=== PATIENT | female | born 1960 | race Caucasian/White ===

== ENCOUNTER 2017-11-04 15:24 | Outpatient (CLI) | payer BC | END 2017-11-04 15:25 | disposition home or self-care (01) | LOC: BICMAMMO 15:24 | PROVIDERS: ATTEND Obstetrics & Gynecology | DX: Z12.31 Encounter for screening mammogram for malignant neoplasm of breast (principal); Z80.3 Family history of malignant neoplasm of breast | CPT/HCPCS: 77063; 77067 ==

== ENCOUNTER 2017-12-31 07:25 | Outpatient (CLI) | payer BC | END 2017-12-31 07:26 | disposition home or self-care (01) | LOC: BICULT 07:25 | PROVIDERS: ATTEND Internal Medicine Gastroenterology | DX: K75.81 Nonalcoholic steatohepatitis (NASH) (principal); K74.60 Unspecified cirrhosis of liver; K76.0 Fatty (change of) liver, not elsewhere classified | CPT/HCPCS: 76705 ==

== ENCOUNTER 2018-07-02 07:47 | Outpatient (CLI) | payer BC ==
--- NOTE | 2018-07-02 09:23 | ULT ---
ULTRASOUND HEPATIC DOPPLER DUPLEX: Date: 07/02/18 HISTORY: Nonalcoholic steatohepatitis (HINOJOSA). TECHNIQUE: Montalvo scale evaluation of right upper quadrant structures and spleen. Color flow and spectral analysis of major vessels associated with the liver. FINDINGS: Hepatic echogenicity is diffusely increased, with signal dropout in the deep landrum, consistent with fatty liver. Gallbladder wall thickness is normal. No gallstones, sludge, pericholecystic fluid, or sonographic Mu rphy's sign. Common duct caliber is 7 mm. Appropriate waveforms and hepatofugal flow in the left, right, and middle hepatic veins. Appropriate arterial Doppler waveform in hepatic artery. Normal portal venous waveform and hepatopetal blood flow demonstrated in the splenic vein, main angela l vein, left portal vein, and right portal vein. No hydronephrosis of the right kidney. No splenomegaly. IMPRESSION: 1. Hepatic steatosis. 2. No evidence of portal venous hypertension. 3. No interval change since 12/31/17. POS: BEL
== END 2018-07-02 07:48 | disposition home or self-care (01) ==
LOC: BICULT 07:47
PROVIDERS: ATTEND Internal Medicine Gastroenterology
DX: K75.81 Nonalcoholic steatohepatitis (NASH) (principal); K76.0 Fatty (change of) liver, not elsewhere classified
CPT/HCPCS: 36415; 76705; 80053; 82105; 85025

== ENCOUNTER 2018-11-20 15:28 | Outpatient (CLI) | payer BC ==
--- NOTE | 2018-11-20 16:33 | MMO ---
Bilateral MAMMO Bilat Screen [facility]. CLINICAL HISTORY: Patient is 58 years old and is seen for screening. The patient has the following family history of breast cancer: maternal grandmother, at age 82 and paternal aunt, at age 40. The patient has no personal history of cancer. VIEWS: The views performed were: bilateral craniocaudal with tomosynthesis and bilateral mediolateral oblique with tomosynthesis. FILMS COMPARED: The present examination has been compared to prior imaging studies performed at [facility] on 09/20/2015, 09/20/2016 and 11/04/2017. MAMMOGRAM FINDINGS: Finding 1: There are stable benign appearing calcifications seen in both breasts. Finding 2: There are stable benign appearing densities seen in both breasts. There are no suspicious masses, suspicious calcifications, or new areas of architectural distortion. IMPRESSION: THERE IS NO MAMMOGRAPHIC EVIDENCE OF MALIGNANCY. A ROUTINE FOLLOW-UP MAMMOGRAM IN 1 YEAR IS RECOMMENDED. THE RESULTS OF THIS EXAM WERE SENT TO THE PATIENT. ACR BI-RADS Category 2 - Benign finding MAMMOGRAPHY NOTE: 1. A negative mammogram report should not delay a biopsy if a dominant of clinically suspicious mass is present. 2. Approximately 10% to 15% of breast cancers are not detected by mammography. 3. Adenosis and dense breasts may obscure an underlying neoplasm.
== END 2018-11-20 15:29 | disposition home or self-care (01) ==
LOC: BICMAMMO 15:28
PROVIDERS: ATTEND Obstetrics & Gynecology
DX: Z12.31 Encounter for screening mammogram for malignant neoplasm of breast (principal); Z80.3 Family history of malignant neoplasm of breast
CPT/HCPCS: 77063; 77067

== ENCOUNTER 2019-01-27 07:41 | Outpatient (CLI) | payer BC ==
--- NOTE | 2019-01-27 08:24 | ULT ---
US Hepatic Doppler History: Nonalcoholic hepatosteatosis Comparison: Liver Doppler ultrasound June 2018 Findings: Real-time grayscale, color, and spectral analysis of the liver was performed. Visualized portion of the aorta, IVC, and pancreas are unremarkable. Pancreas is unremarkable. Diffuse increased hepatic echotexture. Portal vein is patent with antegrade flow. Common bile duct me asures 4 mm, normal. Hepatic veins are patent. No hepatic mass. Liver measures 15.4 cm in length. Spleen measures 12.4 cm in length. Impression: 1. Diffuse increased hepatic echotexture suggesting steatosis without mass. 2. Splenomegaly. 3. Normal vascular flow.
== END 2019-01-27 07:42 | disposition home or self-care (01) ==
LOC: BICULT 07:41
PROVIDERS: ATTEND Internal Medicine Gastroenterology
DX: K75.81 Nonalcoholic steatohepatitis (NASH) (principal); R16.1 Splenomegaly, not elsewhere classified
CPT/HCPCS: 36415; 76705; 80053; 82105; 85025

== ENCOUNTER 2019-08-13 07:09 | Outpatient (CLI) | payer BC ==
--- NOTE | 2019-08-13 08:14 | ULT ---
US Hepatic Doppler HISTORY: Fatty liver COMPARISON: 01/27/2019 FINDINGS: Changes of fatty infiltration of the liver are again seen without focal mass or intrahepatic biliary ductal dilatation. The spleen is normal measuring 11.2 cm in length. No gallstones, gallbladder wall thickening or pericholecystic fluid is seen. The common duct measures 6 mm in diameter. The visu alized portions of the pancreas There is normal flow and spectral waveforms in the hepatic, portal and splenic vasculature. No free f luid is seen. IMPRESSION: Fatty liver. No evidence of mass.
== END 2019-08-13 07:10 | disposition home or self-care (01) ==
LOC: BICULT 07:09
PROVIDERS: ATTEND Physician Assistant Medical
DX: K75.81 Nonalcoholic steatohepatitis (NASH) (principal); K76.0 Fatty (change of) liver, not elsewhere classified
CPT/HCPCS: 76705

== ENCOUNTER 2019-11-26 15:14 | Outpatient (CLI) | payer BC ==
--- NOTE | 2019-11-29 08:42 | MMO ---
Bilateral MAMMO Bilat Screen [facility]. CLINICAL HISTORY: Patient is 59 years old and is seen for screening. The patient has the following family history of breast cancer: maternal grandmother, at age 82 and paternal aunt, at age 40. The patient has no personal history of cancer. VIEWS: The views performed were: bilateral craniocaudal with tomosynthesis and bilateral mediolateral oblique with tomosynthesis. FILMS COMPARED: The present examination has been compared to prior imaging studies performed at [facility] on 09/20/2015, 09/20/2016, 11/04/2017 and 11/20/2018. This study has been interpreted with the assistance of computer-aided detection. MAMMOGRAM FINDINGS: There are scattered fibroglandular densities. There are stable benign appearing calcifications seen in both breasts. There are no suspicious masses, suspicious calcifications, or new areas of architectural distortion. IMPRESSION: THERE IS NO MAMMOGRAPHIC EVIDENCE OF MALIGNANCY. A ROUTINE FOLLOW-UP MAMMOGRAM IN 1 YEAR IS RECOMMENDED. THE RESULTS OF THIS EXAM WERE SENT TO THE PATIENT. ACR BI-RADS Category 2 - Benign finding MAMMOGRAPHY NOTE: 1. A negative mammogram report should not delay a biopsy if a dominant of clinically suspicious mass is present. 2. Approximately 10% to 15% of breast cancers are not detected by mammography. 3. Adenosis and dense breasts may obscure an underlying neoplasm. Reported by: MICHAEL YORK MD Electonically Signed: [id number]
== END 2019-11-26 15:15 | disposition home or self-care (01) ==
LOC: BICMAMMO 15:14
PROVIDERS: ATTEND Obstetrics & Gynecology
DX: Z12.31 Encounter for screening mammogram for malignant neoplasm of breast (principal); Z80.3 Family history of malignant neoplasm of breast
CPT/HCPCS: 77063; 77067

== ENCOUNTER 2020-03-28 08:01 | Outpatient (CLI) | payer BC ==
--- NOTE | 2020-03-28 09:21 | CT ---
CT abdomen and pelvis noncontrast HISTORY: Microhematuria. FINDINGS: Each renal collecting system, ureter, and urinary bladder are decompressed. At the inferior pole of the right kidney is an irregular shaped 0.8 cm calcification within nondilated calyces. A 0.1 cm calculus is present within a nondilated calyx at the inferior pole left kidney. Tiny phlebolit hs noted within the lower retroperitoneum near the each distal ureter. Small rounded dystrophic calcification lies immediately anterior to the bladder base. Tiny focus of nonspecific parenchymal opacity at the right anterior lung base. 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 Lack of contrast limits evaluation of the soft tissues. Nonspecific peripancreatic lymph nodes measur e up to 2.0 cm greatest length and retained normal fatty amada. No evidence of bowel obstruction or inflammation. IMPRESSION : Nonobstructing 0.8 cm right renal calculus. Tiny left renal calculus. Atherosclerosis.
== END 2020-03-28 08:02 | disposition home or self-care (01) ==
LOC: BICCT 08:01
PROVIDERS: ATTEND Family Medicine
DX: R31.29 Other microscopic hematuria (principal); N20.0 Calculus of kidney; I70.90 Unspecified atherosclerosis
CPT/HCPCS: 74176

== ENCOUNTER 2020-04-04 06:54 | Outpatient (CLI) | payer BC ==
--- NOTE | 2020-04-04 07:52 | ULT ---
Hepatic sonogram with duplex evaluation HISTORY: Abnormal liver function tests. FINDINGS: Gallbladder has a normal appearance. Common duct is 0.4 cm. Liver is diffusely echogenic without focal mass or intrahepatic biliary dilatation. It measures up to 14.5 cm. No free fluid. Spleen is 11.8 cm length. Good color and spectral Doppler flow within the hepatic and splenic arteries. Portal venous flow is t owards the liver. Hepatic venous flow is towards the IVC. IMPRESSION : Hepato-steatosis. No findings of portal venous hypertension.
== END 2020-04-04 06:55 | disposition home or self-care (01) ==
LOC: BICULT 06:54
PROVIDERS: ATTEND Physician Assistant Medical
DX: K75.81 Nonalcoholic steatohepatitis (NASH) (principal)
CPT/HCPCS: 36415; 76705; 80053; 82105; 85025; 85610

== ENCOUNTER 2020-04-27 06:11 | Day surgery (SDC) | payer BC ==
[2020-04-25 12:11] VITALS: BMI 36.8
[2020-04-27] MEDS ORDERED: Levofloxacin 500 mg/D5W 100 ml Premix Bag ONE (07:19)
[2020-04-27] MEDS ORDERED: Fentanyl 100 MCG/2 ML VIAL ONE ×2 (07:25→09:51)
[2020-04-27] MEDS ORDERED: Midazolam HCl 2 mg/2 ml Vial ONE (07:42)
[2020-04-27] MEDS ORDERED: Iothalamate Meglumine 60% 50 ML VIAL FS ONE (08:29)
[2020-04-27] MEDS ORDERED: B & O ONE (08:29)
[2020-04-27] MEDS ORDERED: Phenazopyridine HCl 100 MG TAB ONE (09:54)
[2020-04-27] MEDS ORDERED: PROPOFOL 200 MG/20 ML VIAL ONE (10:14)
[2020-04-27] MEDS ORDERED: Rocuronium Bromide 10 MG/ML (10ML VIAL) ONE (10:14)
[2020-04-27] MEDS ORDERED: Lidocaine 1% PF 5 ML VIAL ONE (10:14)
[2020-04-27] MEDS ORDERED: EPHEDRINE 25 MG/5 ML SYRINGE ONE (10:14)
[2020-04-27] MEDS ORDERED: PHENYLEPHRINE-NS 100 MCG/ML 10 ML SYRINGE ONE (10:14)
[2020-04-27] MEDS ORDERED: Ondansetron PF 4 MG/2 ML Vial ONE (10:14)
[2020-04-27] MEDS ORDERED: Glycopyrrolate 0.2 MG/ML 5 ML SYRINGE ONE (10:14)
--- NOTE | 2020-04-27 11:05 | OP ---
DATE OF PROCEDURE: 04/27/2020 SERVICE: Urology. PREOPERATIVE DIAGNOSIS: Right renal stone. POSTOPERATIVE DIAGNOSIS: Right renal stone. PROCEDURES PERFORMED: Right ureteroscopy, laser lithotripsy, basket extraction of stone, and placement of a 6 x 24 double-J stent. INDICATION FOR PROCEDURE: Ms. Shepard is a 59-year-old white female who presented to [place] with hematuria. She had a right renal stone noted on CT scan measuring 8 mm. She was asymptomatic, but due to the size of the stone, I had recommended prophylactic treatment. She elected to proceed forward after discussion of risks and benefits. DESCRIPTION OF PROCEDURE: After identification of armband and verification of consent, the patient was brought back to the operating room where she underwent general anesthesia with endotracheal intubation. She was then placed in dorsal lithotomy position and prepped and draped in usual sterile fashion. After appropriate time-out, a lubricated 22-Kenyan rigid cystoscope was introduced per urethra into the bladder. Cystoscopy did not demonstrate any mucosal abnormalities. The bladder otherwise appeared normal. Both ureters were in the orthotopic location. Attention was turned to the right ureteral orifice, which was cannulated with a 0.035 Sensor wire up to the level of renal pelvis. The stone was radiolucent on fluoroscopy. The cystoscope was removed and a dual-lumen catheter was advanced up to the mid ureter, where a Super Stiff wire was passed to the second lumen up to the level of renal pelvis. The dual-lumen was then removed, and a Sensor wire affixed to the drapes as a safety wire. A Bard short ureteral access sheath 12/14-Kenyan diameter was advanced over the Super Stiff wire up to the level of the proximal ureter. The inner cannula and Super Stiff wire were then removed leaving the outer sheath and Sensor wire in place. A flexible digital ureteroscope was passed through the ureteral access sheath into the renal pelvis where the stone was found in the mid pole. Using a 200 micron ball-tip laser fiber, the stone was dusted into extremely small fragments. Both these fragments were too small to hop picker with the 1.9-Kenyan Jeremiah basket, which were used for stone extraction. The largest piece, which measured about 2 to 3 mm was grasped with this basket and removed for stone specimen. The remainder were too little to grab and we elected to let these pass on their own. Final pyeloscopy did not demonstrate any additional stones and pull-back ureteroscopy did not demonstrate any other abnormalities or stones. A 6 x 24 double-J stent was advanced after all instruments were removed over the Sensor wire and fluoroscopically positioned into place within the renal pelvis. The wire was removed leaving a partial curl in the kidney and a good curl in the bladder. Cystoscope was then reintroduced into the bladder to confirm the distal curl placement and then empty the bladder out. The scope was then removed. B and O suppositories were placed in the rectum. The patient was taken out of positioning, awakened, taken to PACU for recovery in stable condition. COMPLICATIONS: None. ESTIMATED BLOOD LOSS: Minimal. RETAINED TUBES AND DRAINS: 6 x 24 double-J stent on the right. SPECIMENS: Stone for stone analysis. DISPOSITION: The patient will be discharged home and follow up with me in approximately 1 week for cystoscopy and stent removal. Job ID: [id number]
[2020-04-27] MEDS ORDERED: HYDROcodone/Acetaminophen 5/325 mg Tablet ONE (11:10)
== END 2020-04-27 12:00 | disposition home or self-care (01) ==
LOC: SDC 06:11
PROVIDERS: ATTEND Urology
PROC: 0TC38ZZ Extirpation of Matter from Right Kidney Pelvis, Via Natural or Artificial Opening Endoscopic (ICD-10-PCS; principal; 2020-04-27)
PROC: 0T768DZ Dilation of Right Ureter with Intraluminal Device, Via Natural or Artificial Opening Endoscopic (ICD-10-PCS; principal; 2020-04-27)
DX: N20.0 Calculus of kidney (principal); R39.11 Hesitancy of micturition; I10 Essential (primary) hypertension; F32.9 Major depressive disorder, single episode, unspecified; E78.00 Pure hypercholesterolemia, unspecified; E11.41 Type 2 diabetes mellitus with diabetic mononeuropathy; K58.9 Irritable bowel syndrome, unspecified; K74.60 Unspecified cirrhosis of liver; K75.81 Nonalcoholic steatohepatitis (NASH); M85.80 Other specified disorders of bone density and structure, unspecified site; J45.909 Unspecified asthma, uncomplicated; Z87.891 Personal history of nicotine dependence; Z79.4 Long term (current) use of insulin; Z79.82 Long term (current) use of aspirin; Z79.899 Other long term (current) drug therapy
CPT/HCPCS: 76000; 82365; 88300; J1956; J2250; J2405; J2704; J3010

== ENCOUNTER 2020-06-19 12:16 | Outpatient (CLI) | payer BC ==
--- NOTE | 2020-06-19 14:29 | ULT ---
BILATERAL RENAL ULTRASOUND: Date: 06/19/2020 HISTORY: Kidney stones. FINDINGS: Real-time imaging of the right and left kidneys were performed. Right kidney measures 11.9 cm in [place] th and the left kidney measures 11.0 cm in length. No cyst, mass, or obstruction. No calculi demonstr ated. The bladder region appears unremarkable. Bilateral ureteral jets. IMPRESSION: Unremarkable renal ultrasound. POS: AH
== END 2020-06-19 12:17 | disposition home or self-care (01) ==
LOC: BICULT 12:16
PROVIDERS: ATTEND Urology
DX: N20.0 Calculus of kidney (principal); K75.81 Nonalcoholic steatohepatitis (NASH)
CPT/HCPCS: 76770

== ENCOUNTER 2020-11-27 15:04 | Outpatient (CLI) | payer BC | END 2020-11-27 15:05 | disposition home or self-care (01) | LOC: BICMAMMO 15:04 | PROVIDERS: ATTEND Obstetrics & Gynecology | DX: Z12.31 Encounter for screening mammogram for malignant neoplasm of breast (principal); Z80.3 Family history of malignant neoplasm of breast | CPT/HCPCS: 77063; 77067 ==

== ENCOUNTER 2021-08-27 07:00 | Outpatient (CLI) | payer BC | END 2021-08-27 07:01 | disposition home or self-care (01) | LOC: BICULT 07:00 | PROVIDERS: ATTEND Physician Assistant Medical | DX: K75.81 Nonalcoholic steatohepatitis (NASH) (principal); R16.0 Hepatomegaly, not elsewhere classified | CPT/HCPCS: 76700 ==

== ENCOUNTER 2021-12-03 13:02 | Outpatient (CLI) | payer BC | END 2021-12-03 13:03 | disposition home or self-care (01) | LOC: BICMAMMO 13:02 | PROVIDERS: ATTEND Obstetrics & Gynecology | DX: Z12.31 Encounter for screening mammogram for malignant neoplasm of breast (principal); Z80.3 Family history of malignant neoplasm of breast | CPT/HCPCS: 77063; 77067 ==

== ENCOUNTER 2022-02-05 12:28 | Outpatient (CLI) | payer BC ==
[~2022-02-05 12:28] MED LIST: Magnevist 469MG/ML 20 ML VIAL ONE
== END 2022-02-05 12:29 | disposition home or self-care (01) ==
LOC: BICMRI 12:28
PROVIDERS: ATTEND Physician Assistant Medical
DX: K74.60 Unspecified cirrhosis of liver (principal); K75.81 Nonalcoholic steatohepatitis (NASH)
CPT/HCPCS: 74183; 82565; A9579

== ENCOUNTER 2022-07-04 15:13 | Outpatient (CLI) | payer BC | END 2022-07-04 15:14 | disposition home or self-care (01) | LOC: RAD 15:13 | PROVIDERS: ATTEND Internal Medicine | DX: R07.81 Pleurodynia (principal) ==

== ENCOUNTER 2023-03-25 09:30 | Emergency (ER) | payer BC ==
[2023-03-25] MEDS ORDERED: Aspirin 325 MG TAB ONE (10:02)
[2023-03-25] MEDS ORDERED: Ipratropium/Albuterol 3 ML NEB ONE (10:06)
[2023-03-25] MEDS ORDERED: Aspirin Chewable 81 MG TAB ONE (10:08)
[2023-03-25 10:11] LABS: #Eosinphils 0.1 thou/uL (0.0-0.7); #Monocytes 0.5 thou/uL (0.11-0.59); #Neutrophils 3.3 thou/uL (1.40-6.50); %Basophils 0.6 % (0.0-1.0); %Eosinophils 1.4 % (0.0-10.0); %Lymphocytes 23.3 % (21.0-51.0); %Monocytes 9.4 % (0.0-10.0); %Neutrophils 65.1 % (42.0-75.0); Hemoglobin 13.3 g/dL (12.0-16.0); Mean Corpuscular Hemoglobin 32.8 pg (27.0-31.0); Mean Corpuscular Volume 93.6 fl (78.0-98.0); Mean Platelet Volume 9.8 fL (7.4-10.4); Platelet Count 254 10x3/uL (130-400); RBC Distribution Width 12.6 % (11.5-14.5); Red Blood Cell (RBC) Count 4.06 mill/uL (4.20-5.40)
[2023-03-25] MEDS ORDERED: methylPREDNISolone Sod Succ/PF 125 MG/2 ML VIAL ONE (10:30)
[2023-03-25 10:36] LABS: ALT (SGPT) 20 U/L (8-55); AST (SGOT) 20 U/L (5-34); Albumin 4.5 g/dL (3.4-4.8); Alkaline Phosphatase 49 U/L (40-110); Anion Gap 13 mmol/L (10-20); BUN (Urea Nitrogen) 13 mg/dL (9.8-20.1); Bilirubin, Total 0.5 mg/dL (0.2-1.2); Calc. Creatinine Clearance 0 mL/min (70-130); Calcium 9.8 mg/dL (7.8-10.44); Carbon Dioxide 26 mmol/L (23-31); Chloride 99 mmol/L (98-107); Estimated GFR 73; Globulin 2.8 g/dL (2.4-3.5); Glucose 106 mg/dL (80-115); Lipase 45 U/L (8-78); Potassium 4.3 mmol/L (3.5-5.1); Protein, Total 7.3 g/dL (5.8-8.1); Sodium 134 mmol/L (136-145)
[2023-03-25 10:50] LABS: Troponin I Less than 0.010 ng/mL (< 0.028)
[2023-03-25 12:27] LABS: Troponin I Less than 0.010 ng/mL (< 0.028)
== END 2023-03-25 13:01 | disposition home or self-care (01) ==
LOC: ERS 09:30
DX: U07.1 COVID-19 (principal); R07.9 Chest pain, unspecified; E11.9 Type 2 diabetes mellitus without complications; E78.00 Pure hypercholesterolemia, unspecified; I10 Essential (primary) hypertension; Z79.84 Long term (current) use of oral hypoglycemic drugs; Z79.899 Other long term (current) drug therapy
CPT/HCPCS: 36415; 71045; 80053; 83690; 84484; 85025; 85379; 93005; 94760; 96374; J2930; J7620

== ENCOUNTER 2023-05-07 07:40 | Outpatient (CLI) | payer BC | END 2023-05-07 07:41 | disposition home or self-care (01) | LOC: BICULT 07:40 | PROVIDERS: ATTEND Physician Assistant Medical | DX: K74.60 Unspecified cirrhosis of liver (principal) | CPT/HCPCS: 76700 ==

== ENCOUNTER 2024-07-05 07:58 | Outpatient (CLI) | payer BC | END 2024-07-05 07:59 | disposition home or self-care (01) | LOC: BICMRI 07:58 | PROVIDERS: ATTEND Internal Medicine | DX: R55 Syncope and collapse (principal); I67.82 Cerebral ischemia | CPT/HCPCS: 70551 ==